=== PATIENT | male | born 1985 | race Caucasian/White ===

== ENCOUNTER 2019-04-13 12:44 | Emergency (ER) | payer SELFPAY ==
[2019-04-13] MEDS ORDERED: NS 0.9% 1000 ML** 1,000 ML IV ONE (13:05)
--- NOTE | 2019-04-13 13:45 | ED ---
Syncope/Near Syncope - HPI Summary HPI Summary: This pt is a 33 y/o male presenting to [facility] via EMS from [facility] for syncopal episode today. Pt reports he had drank alcohol and used marijuana yesterday, 04/12/19. Denies any other substance use yesterday. He notes he didn' t sleep at [facility], he went to a camp site at [facility] but did not get good sleep. Pt returned to [facility] today and denies alcohol or any other substance use. Pt ate a bagel - coffee - no water or other fluids. He reports feeling overheated and got up to cool himself. Pt states feeling lightheaded and feeling like passing out. He syncopized with positive LOC and head strike. Pt sustained an abrasion on the right side of his cheek. blood ENT. no broken teeth. Denies incontinence of urine or bowel, blood from his eyes, ears, or nose, broken teeth. EMS reports pt had large quantity of emesis [employer]. Pt currently feels tired. Currently denies lightheadedness, vision changes, headache. Pt only had a bagel and coffee today. Denies drinking any water. His last tetanus shot is UTD, within the last 10 years. Patient lives in [place]. No PMHx. Pt does not take medications every day. NKDA. Pt's medications reviewed this visit. - History Of Current Complaint Chief Complaint: EDSyncope Time Seen by Provider: 04/13/19 13:03 Hx Obtained From: Patient Onset/Duration: Resolved Context: Loss Of Consciousness Activity At Onset: Other - while ambulating Associated Head Trauma: Yes Aggravating Factor(s): Nothing Alleviating Factor(s): Nothing Associated Signs And Symptoms: Head Trauma (Recent), Lightheadedness - prior to syncope, Vomiting, Other - POSITIVE: fatigue, abrasion on face. NEGATIVE: blood from eyes, ears, nose, broken teeth, visual changes, headache. - Allergies/Home Medications Allergies/Adverse Reactions: Allergies Allergy/AdvReac Type Severity Reaction Status Date / Time No Known Allergies Allergy Verified 04/13/19 12:56 Home Medications: Home Medications NK [No Home Medications Reported] 04/13/19 [History Confirmed 04/13/19] PMH/Surg Hx/FS Hx/Imm Hx Previously Healthy: Yes Endocrine/Hematology History: Denies: Hx Diabetes Cardiovascular History: Denies: Hx Hypertension - Surgical History Surgical History: Yes Surgery Procedure, Year, and Place: Dental work Infectious Disease History: No Infectious Disease History: Denies: Traveled Outside the [place] in Last 30 Days - Family History Known Family History: Positive: Non-Contributory Negative: Cardiac Disease, Hypertension, Diabetes - Social History Occupation: Employed Full-time Lives: With Family Substance Use Type: Reports: Marijuana Review of Systems Positive: Fatigue. Negative: Fever, Chills Negative: Other - NEGATIVE: blood for eyes, visual changes Negative: Other - NEGATIVE: blood from ears or nose, broken teeth Positive: Vomiting, Nausea Negative: incontinence Skin: Other - POSITIVE: Abrasion on right cheek Neurological: Other - POSITIVE: lightheadedness Positive: Syncope. Negative: Headache All Other Systems Reviewed And Are Negative: Yes Physical Exam - Summary Physical Exam Summary: Vital Signs Reviewed: Yes A+Ox3, no distress, appropriate Eyes: Conjunctiva Clear, EDY. EOM intact and full ENT: Hearing grossly normal, mm pasty, no pain with palp facial bones. no crepitus Neck: Positive: Supple Respiratory: Positive: No respiratory distress, No accessory muscle use + CTA throughout no w/r Cardiovascular: RRR nl s1, s2 no m/r CBT <2 sec, no bruits abd soft + BS nt/nd no guarding, no distension Musculoskeletal Exam: PULIDO x 4 without difficulty Strength Intact, ROM Intact Neurological: Positive: Alert, + sensation throughout Psychological: Positive: Normal Response To Family Skin: Positive: no rash, no ecchymosis, abraison right zygomatic area - non suturable Vital Signs On Initial Exam: Initial Vitals Temp Pulse Resp BP Pulse Ox 96 F 76 16 124/72 95 04/13/19 12:50 04/13/19 12:50 04/13/19 12:50 04/13/19 12:50 04/13/19 12:50 Diagnostics - Vital Signs Vital Signs Temp Pulse Resp BP Pulse Ox 04/13/19 12:50 96 F 76 16 124/72 95 - Laboratory Result Diagrams: 04/13/19 13:38 04/13/19 13:38 Lab Statement: Any lab studies that have been ordered have been reviewed, and results considered in the medical decision making process. - EKG 12:53 Cardiac Rate: NL - at 80 bpm EKG Rhythm: Sinus Rhythm Summary of EKG Findings: Inverted T wave in III. No STEMI. Re-Evaluation - Re-Evaluation First Eval Re-Evaluation Time: 15:53 Change: Improved Comment: Pt reports feeling well. has walked to bathroom. reviewed labs and CT He will eat crackers and if tolerated pt can be discharged home. SO at bedside Course/Dx Course Of Treatment: Pt presents following a syncopal episode - states became overheated at [employer], little po intakke, + ETOH, THC yesterday. At present feelt tired, thirsty, no focal complaints. VSS. will check labs, CT head, EKG. IVF. reassess. tdap is UTD. pt comfortable with plan - Diagnoses Provider Diagnoses: Dehydration, Syncope, Facial abrasion Discharge - Sign-Out/Discharge Documenting (check all that apply): Patient Departure - Discharge home Patient Received Moderate/Deep Sedation with Procedure: No - Discharge Plan Condition: Stable Disposition: HOME Patient Education Materials: Dehydration (ED), Heat Exhaustion (DC), Syncope ( ED) Referrals: No Primary Care Phys,NOPCP [Primary Care Provider] - Additional Instructions: - stay well hydrated - drink plenty of non-alcoholic, non-caffinated beverages - eat regular, healthy meals - avoid excess heat exposure - contact your doctor or return with questions or concerns - Billing Disposition and Condition Condition: STABLE Disposition: Home - Attestation Statements Document Initiated by Scribe: Yes Documenting Scribe: Tahira Valdes Provider For Whom Scribe is Documenting (Include Credential): Adilene Burnett MD Scribe Attestation: Tahira Martinez, scribed for Adilene Burnett MD on 04/14/19 at 0417. Scribe Documentation Reviewed: Yes Provider Attestation: The documentation as recorded by the Tahira patten accurately reflects the service I personally performed and the decisions made by me, Adilene Burnett MD Status of Scribe Document: Viewed
[2019-04-13 14:03] LABS: ABS Lymphocytes 0.9 10^3/ul (1.0-4.8); ABS Monocytes 0.5 10^3/ul (0-0.8); ABS Neutrophils 9.4 10^3/ul (1.5-7.7); Eosinophil % 0.4 %; Hematocrit 41 % (42-52); Hemoglobin 14.4 g/dL (14.0-18.0); Mean Corpuscular HGB Conc 35 g/dL (31-36); Mean Corpuscular Hemoglobin 32 pg (27-31); Mean Corpuscular Volume 91 fL (80-94); Mean Platelet Volume 8.6 fL (7.4-10.4); Platelet Count 180 10^3/uL (150-450); Red Blood Count 4.57 10^6 /uL (4.18-5.48); Red Cell Distribution Width 13 % (10-15); White Blood Count 10.8 10^3/uL (3.5-10.8)
[2019-04-13 14:20] LABS: Albumin 4.1 g/dL (3.2-5.2); BUN/Creatinine Ratio 18.2 (8-20); Calcium 8.7 mg/dL (8.6-10.3); EGFR African American 105.3 (>60); EGFR Non-African American 87.1 (>60); Globulin 2.1 g/dL (2-4); Magnesium 1.9 mg/dL (1.9-2.7); Potassium 4.9 mmol/L (3.5-5.0); Total Bilirubin 0.5 mg/dL (0.2-1.0); Total Protein 6.2 g/dL (6.4-8.9)
[2019-04-13 16:40] VITALS: BP 130/81
== END 2019-04-13 16:39 | disposition home or self-care (01) ==
LOC: ED 12:44
DX: E86.0 Dehydration (principal); R55 Syncope and collapse; S00.81XA Abrasion of other part of head, initial encounter; W19.XXXA Unspecified fall, initial encounter; Y92.89 Other specified places as the place of occurrence of the external cause
CPT/HCPCS: 36415; 70450; 80053; 82550; 83605; 83735; 85025; 93005; 96360; 99282